=== PATIENT | female | born 1985 | race Caucasian/White ===

== ENCOUNTER → 2019-07-23 | Outpatient (CLI) | payer OTHER ==
[~2019-07-23] MED LIST: AMPI250 PO; IBUP800 PO; Norco 10-325 T1 EACH PO; Norco 5-325 Ta1 EACH PO; OXYACE5T PO; TAMS.4ER PO; Verotin-Gr Cap1 EACH PO; Zofran Odt4 MG SL
== END | disposition home or self-care (01) ==
LOC: LAB SHORT 11:55 → LAB 11:55
PROVIDERS: Obstetrics & Gynecology
DX: Z34.80 Encounter for supervision of other normal pregnancy, unspecified trimester (principal)
CPT/HCPCS: 88142

== ENCOUNTER → 2020-01-19 | Outpatient (CLI) | payer OTHER | END | disposition home or self-care (01) | LOC: LAB 18:52 → LAB SHORT 18:52 | DX: Z34.83 Encounter for supervision of other normal pregnancy, third trimester (principal) | CPT/HCPCS: 87070; 87081; 87653 ==

== ENCOUNTER 2020-02-08 05:18 | Inpatient (IN) | payer OTHER ==
[~2020-02-08] VITALS: Ht 165.1 cm; Wt 75.0 kg
[2020-02-08] MEDS ORDERED: FAMO20 PO (05:52)
[2020-02-08 06:47] LABS: BASOPHILS ABSOLUTE AUTO 0.07 K/mm3 (0.00-0.23); BASOPHILS PERCENT AUTO 0 % (0-2); EOSINOPHILS ABSOLUTE AUTO 0.16 K/mm3 (0.00-0.68); EOSINOPHILS PERCENT AUTO 1 % (0-6); Hematocrit 38.9 % (33.0-51.0); Hemoglobin 13.1 g/dL (11.5-16.0); IMMATURE GRAN ABSOLUTE AUTO 0.19 K/mm3 (0.00-0.10); IMMATURE GRAN PERCENT AUTO 1 % (0-1); LYMPHOCYTES ABSOLUTE AUTO 3.26 K/mm3 (0.84-5.20); LYMPHOCYTES PERCENT AUTO 21 % (21-46); MONOCYTES ABSOLUTE AUTO 0.94 K/mm3 (0.16-1.47); MONOCYTES PERCENT AUTO 6 % (4-13); Mean Corpuscular HGB 30.3 pg (26.0-34.0); Mean Corpuscular HGB Conc 33.7 g/dL (31.5-36.5); Mean Corpuscular Volume 90 fL (80-100); Mean Platelet Volume 10.9 fL (9.1-12.4); NEUTROPHILS ABSOLUTE AUTO 11.19 K/mm3 (1.96-9.15); NEUTROPHILS PERCENT AUTO 71 % (41-73); Platelet Count 143 K/mm3 (150-400); RDW Coefficient Variation 14.5 % (11.7-14.2); RDW Standard Deviation 47.8 fL (35.1-46.3); Red Blood Cell Count 4.32 M/mm3 (3.80-5.20); White Blood Cell Count 15.81 K/mm3 (4.00-11.30)
--- NOTE | 2020-02-08 07:13 | NUR ---
PT SITTING UP IN BED. C/O SOB AND GENERALIZED CHEST PAIN SINCE START OF PITOCIN. COLOR IS GOOD, NO LABORED BREATHING NOTED. LUNGS CLEAR T/O. BIOX WNL. PT REPORTS SHE MAY BE FEELING ANXIOUS. WILL CONTINUE TO MONITOR SATS AND NOTIFY DR OF ANY CHANGES
--- NOTE | 2020-02-08 15:12 | NUR ---
RN ROUNDED TO HELP W/ . INSTRUCT/DEMO WIDENING LATCH, CORRECT POSITIONING, AND NIPPLE SHAPE AFTER FEEDS. INSTRUCT/REVIEWED BOOKLET AND BROCHURE ON AND WHAT TO EXPECT DURING THE FIRST WEEK W/ AND CHANGES IN NB. PT AND SO VERBALIZED UNDERSTANDING AND DENY ANY FURTHER QUESTIONS OR CONCERNS.
--- NOTE | 2020-02-08 17:00 | NUR ---
1600: LEFT LABIA NOTED TO BE MORE SWOLLEN AND FIRM TO TOUCH. NO FIRMNESS NOTED ANYWHERE ELSE. NEW ICE PACK APPLIED AFTER SHOWER. 1700: NO INCREASE IN SWELLING OR FIRMNESS NOTED ON LEFT LABIA. PT STILL REPORTS DISCOMFORT. TYLENOL GIVEN FOR PAIN
--- NOTE | 2020-02-08 18:16 | NUR ---
1800 UP TO BRP. SALTY WELL. ABLE TO WALK A LITTLE BETTER. INCREASED SWELLING NOTED. PT STATES IT DOESN'T FEEL ANY WORSE THAN EARLIER. ABLE TO VOID WITHOUT DIFFICULTY. BRENNAN CARE DONE. NO ICE AT THIS TIME. WILL RESUME ICE IN AN HOUR OR TWO. PT RATES PAIN STILL 5/10. UNSURE IF SHE WILL NEED SOMETHING MORE FOR PAIN AT THIS TIME. PT OPTED TO STAND AT SIDE OF BED FOR A LITTLE WHILE. RN OUT OF ROOM. AT BEDSIDE WITH PT.
--- NOTE | 2020-02-08 19:22 | NUR ---
UPDATE TO DR. MELO, ORDER RECEIVED FOR PAIN MEDICATION.
--- NOTE | 2020-02-08 23:32 | NUR ---
NO CHANGE IN SWELLING FROM EARLIER DEMARCATION. PT REPORTS PAIN OKAY. 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 WILL CONTINUE TO MONITOR.
[2020-02-09 05:45] LABS: Hematocrit 30.7 % (33.0-51.0); Hemoglobin 10.2 g/dL (11.5-16.0); Mean Corpuscular HGB 30.5 pg (26.0-34.0); Mean Corpuscular HGB Conc 33.2 g/dL (31.5-36.5); Mean Corpuscular Volume 92 fL (80-100); Mean Platelet Volume 11.1 fL (9.1-12.4); Platelet Count 125 K/mm3 (150-400); RDW Coefficient Variation 14.3 % (11.7-14.2); Red Blood Cell Count 3.34 M/mm3 (3.80-5.20); White Blood Cell Count 17.45 K/mm3 (4.00-11.30)
[2020-02-09] MEDS ORDERED: IBUP800 PO (09:15)
--- NOTE | 2020-02-09 16:49 | NUR ---
DISCHARGE INSTRUCTIONS GIVEN AND REVIEWED. WRITTEN PRESCRIPTIONS GIVEN TO PATIENT.PATIENT DENIES ANY FURTHER QUESTIONS OR CONCERNS AT THIS TIME.
--- NOTE | 2020-02-09 17:10 | NUR ---
RN ROUNDED TO HELP W/ . PT REPORTS WENT WELL THROUGH THE NIGHT. DENIES ANY FURTHER QUESTIONS OR CONCERNS.
== END 2020-02-09 18:04 | disposition home or self-care (01) | DRG 807 ==
LOC: OBS 05:18 → BC 05:25
PROVIDERS: ADMIT Obstetrics & Gynecology
PROC: 10E0XZZ Delivery of Products of Conception, External Approach (ICD-10-PCS; principal; 2020-02-08)
PROC: 0KQM0ZZ Repair Perineum Muscle, Open Approach (ICD-10-PCS; 2020-02-08)
PROC: 3E0R3BZ Introduction of Anesthetic Agent into Spinal Canal, Percutaneous Approach (ICD-10-PCS; 2020-02-08)
PROC: 3E033VJ Introduction of Other Hormone into Peripheral Vein, Percutaneous Approach (ICD-10-PCS; 2020-02-08)
PROC: 10907ZC Drainage of Amniotic Fluid, Therapeutic from Products of Conception, Via Natural or Artificial Opening (ICD-10-PCS; 2020-02-08)
PROC: 0UQG7ZZ Repair Vagina, Via Natural or Artificial Opening (ICD-10-PCS; 2020-02-08)
PROC: 0UC97ZZ Extirpation of Matter from Uterus, Via Natural or Artificial Opening (ICD-10-PCS; 2020-02-08)
PROC: 00HU33Z Insertion of Infusion Device into Spinal Canal, Percutaneous Approach (ICD-10-PCS; 2020-02-08)
DX: O36.63X0 Maternal care for excessive fetal growth, third trimester, not applicable or unspecified (principal); Z37.0 Single live birth; O69.81X0 Labor and delivery complicated by cord around neck, without compression, not applicable or unspecified; O70.1 Second degree perineal laceration during delivery; Z3A.39 39 weeks gestation of pregnancy; O90.89 Other complications of the puerperium, not elsewhere classified; O71.82 Other specified trauma to perineum and vulva
CPT/HCPCS: 36415; 51702; 85025; 85027; 85460; 86850; 86870; 86900; 86901; 96372; A9270; J1885; J2001; J2210; J2590; J2791; J3010; J7120

== ENCOUNTER 2020-09-03 01:43 | Emergency (ER) | payer OTHER ==
[~2020-09-03] VITALS: Ht 165.1 cm; Wt 63.5 kg
[~2020-09-03 01:43] MED LIST changes: +FAMO20 PO
[2020-09-03 02:12] LABS: BASOPHILS ABSOLUTE AUTO 0.07 K/mm3 (0.00-0.23); BASOPHILS PERCENT AUTO 1 % (0-2); EOSINOPHILS ABSOLUTE AUTO 0.34 K/mm3 (0.00-0.68); EOSINOPHILS PERCENT AUTO 3 % (0-6); Hematocrit 44.8 % (33.0-51.0); Hemoglobin 14.5 g/dL (11.5-16.0); IMMATURE GRAN ABSOLUTE AUTO 0.03 K/mm3 (0.00-0.10); IMMATURE GRAN PERCENT AUTO 0 % (0-1); LYMPHOCYTES ABSOLUTE AUTO 4.11 K/mm3 (0.84-5.20); LYMPHOCYTES PERCENT AUTO 37 % (21-46); MONOCYTES ABSOLUTE AUTO 0.74 K/mm3 (0.16-1.47); MONOCYTES PERCENT AUTO 7 % (4-13); Mean Corpuscular HGB 28.4 pg (26.0-34.0); Mean Corpuscular HGB Conc 32.4 g/dL (31.5-36.5); Mean Corpuscular Volume 88 fL (80-100); Mean Platelet Volume 10.3 fL (9.1-12.4); NEUTROPHILS ABSOLUTE AUTO 5.76 K/mm3 (1.96-9.15); NEUTROPHILS PERCENT AUTO 52 % (41-73); Platelet Count 228 K/mm3 (150-400); RDW Coefficient Variation 12.8 % (11.7-14.2); RDW Standard Deviation 41.4 fL (35.1-46.3); White Blood Cell Count 11.05 K/mm3 (4.00-11.30)
[2020-09-03 02:30] LABS: Alanine Aminotransfer (ALT/SGP 24 U/L (12-78); Albumin, Blood 4.1 g/dL (3.4-5.0); Albumin/Globulin Ratio 1.2 (0.8-1.8); Alk Phos 118 U/L (50-136); Anion Gap 7 mmol/L (6-16); Aspartate Aminotrans (AST/SGOT 12 U/L (12-37); Bilirubin, Total 0.4 mg/dL (0.1-1.0); Blood Urea Nitrogen 27 mg/dL (8-24); Bun/Creatinine Ratio 30.3 (12.0-20.0); CO2, Blood 24 mmol/L (21-32); Calcium, Blood 8.9 mg/dL (8.5-10.1); Chloride, Blood 112 mmol/L (98-108); Creatinine, Blood 0.89 mg/dL (0.40-1.00); Globulin, Blood 3.3 g/dL (2.2-4.0); Glomerular Filtration Rate >60 (60-); Glucose, Blood 99 mg/dL (70-99); Potassium, Blood 3.7 mmol/L (3.5-5.5); Sodium, Blood 143 mmol/L (136-145); Total Protein, Blood 7.4 g/dL (6.4-8.2)
[2020-09-03 03:56] LABS: Source, Urine Clean Catch
[2020-09-03 03:57] LABS: Bilirubin, Urine Neg (Neg); Blood, Urine 5+ (Neg); Glucose Qualitative, Urine Neg (Neg); Ketones, Urine 1+ (Neg); Leukocyte Esterase, Urine 1+ (Neg); Nitrite, Urine Neg (Neg); Protein, Urine 2+ (Neg); Urobilinogen, Urine NORM (Normal)
[2020-09-03 04:03] LABS: Appearance, Urine Hazy (Clear); Color, Urine Yellow (P-Yellow)
[2020-09-03 04:04] LABS: Bacteria Few /hpf; Mucus Light (0-Heavy); Red Blood Cells, Urine TNTC /hpf (0-2); Squamous Epithelial Cells Few /hpf (Few)
[2020-09-03] MEDS ORDERED: HYDR1TAB94 PO (04:32)
[2020-09-03] MEDS ORDERED: ONDA4ODT MM (04:32)
== END 2020-09-03 04:37 | disposition home or self-care (01) ==
LOC: ER 01:43
PROVIDERS: Emergency Medicine
DX: N13.2 Hydronephrosis with renal and ureteral calculous obstruction (principal); F41.9 Anxiety disorder, unspecified
CPT/HCPCS: 36415; 74176; 80053; 81001; 84703; 85025; 87086; 96374; 96375; 99284-25; J1885; J2405; J3010; J7030

== ENCOUNTER 2020-09-08 07:06 | Emergency (ER) | payer OTHER ==
[~2020-09-08] VITALS: Ht 165.1 cm; Wt 63.5 kg
[~2020-09-08 07:06] MED LIST changes: +HYDR1TAB94 PO; +ONDA4ODT MM
[2020-09-08] MEDS ORDERED: Vitamin B-121000 MCG PO (07:54)
[2020-09-08] MEDS ORDERED: ACET500 PO (07:54)
[2020-09-08 08:32] LABS: BASOPHILS ABSOLUTE AUTO 0.03 K/mm3 (0.00-0.23); BASOPHILS PERCENT AUTO 0 % (0-2); EOSINOPHILS ABSOLUTE AUTO 0.12 K/mm3 (0.00-0.68); EOSINOPHILS PERCENT AUTO 1 % (0-6); Hematocrit 39.6 % (33.0-51.0); IMMATURE GRAN ABSOLUTE AUTO 0.02 K/mm3 (0.00-0.10); IMMATURE GRAN PERCENT AUTO 0 % (0-1); LYMPHOCYTES ABSOLUTE AUTO 1.75 K/mm3 (0.84-5.20); LYMPHOCYTES PERCENT AUTO 17 % (21-46); MONOCYTES ABSOLUTE AUTO 0.59 K/mm3 (0.16-1.47); MONOCYTES PERCENT AUTO 6 % (4-13); Mean Corpuscular HGB 29.5 pg (26.0-34.0); Mean Corpuscular HGB Conc 32.8 g/dL (31.5-36.5); Mean Corpuscular Volume 90 fL (80-100); Mean Platelet Volume 10.4 fL (9.1-12.4); NEUTROPHILS ABSOLUTE AUTO 7.54 K/mm3 (1.96-9.15); NEUTROPHILS PERCENT AUTO 75 % (41-73); Platelet Count 188 K/mm3 (150-400); RDW Coefficient Variation 12.8 % (11.7-14.2); RDW Standard Deviation 42.3 fL (35.1-46.3); Red Blood Cell Count 4.41 M/mm3 (3.80-5.20); White Blood Cell Count 10.05 K/mm3 (4.00-11.30)
[2020-09-08 08:46] LABS: Alanine Aminotransfer (ALT/SGP 16 U/L (12-78); Albumin, Blood 3.6 g/dL (3.4-5.0); Albumin/Globulin Ratio 1.2 (0.8-1.8); Alk Phos 81 U/L (50-136); Anion Gap 4 mmol/L (6-16); Aspartate Aminotrans (AST/SGOT 12 U/L (12-37); Bilirubin, Total 0.7 mg/dL (0.1-1.0); Blood Urea Nitrogen 20 mg/dL (8-24); Bun/Creatinine Ratio 23.8 (12.0-20.0); CO2, Blood 25 mmol/L (21-32); Calcium, Blood 8.1 mg/dL (8.5-10.1); Chloride, Blood 116 mmol/L (98-108); Creatinine, Blood 0.84 mg/dL (0.40-1.00); Globulin, Blood 3.1 g/dL (2.2-4.0); Glomerular Filtration Rate >60 (60-); Glucose, Blood 87 mg/dL (70-99); Potassium, Blood 3.9 mmol/L (3.5-5.5); Sodium, Blood 145 mmol/L (136-145); Total Protein, Blood 6.7 g/dL (6.4-8.2)
[2020-09-08 09:26] LABS: Source, Urine Clean Catch
[2020-09-08 09:31] LABS: Appearance, Urine Clear (Clear); Bilirubin, Urine Neg (Neg); Blood, Urine 2+ (Neg); Color, Urine Yellow (P-Yellow); Glucose Qualitative, Urine Neg (Neg); Ketones, Urine 2+ (Neg); Leukocyte Esterase, Urine 1+ (Neg); Nitrite, Urine Neg (Neg); Protein, Urine 1+ (Neg); Urobilinogen, Urine NORM (Normal)
[2020-09-08 09:47] LABS: Bacteria Rare /hpf; Squamous Epithelial Cells Few /hpf (Few)
[2020-09-08 12:36] LABS: Influenza A, PCR Negative (NEGATIVE); Influenza B, PCR Negative (NEGATIVE); Resp Syncytial Virus, PCR Negative (NEGATIVE); SARS-Cov-2 (COVID-19) PCR, MMC Negative (NEGATIVE)
== END 2020-09-08 12:34 | disposition home or self-care (01) ==
LOC: ER 07:06
PROVIDERS: Emergency Medicine
DX: N20.1 Calculus of ureter (principal); Z79.899 Other long term (current) drug therapy
CPT/HCPCS: 0241U; 80053; 81001; 85025; 87086; 96361; 96365; 96375; 99284-25; J0696; J1885; J2405; J7030

== ENCOUNTER 2021-01-27 17:32 | Observation (INO) | payer OTHER ==
[~2021-01-27] VITALS: Ht 165.1 cm; Wt 67.9 kg
[~2021-01-27 17:32] MED LIST changes: +ACET500 PO; +Vitamin B-121000 MCG PO
[2021-01-27] MEDS ORDERED: VITAMIN D32000 UNI1 PO (19:39)
[2021-01-27 23:40] LABS: Calcium, Ionized (POC) 1.13 mmol/L (1.10-1.46); Chloride (POC) 106 mmol/L (98-108); Creatinine (POC) 0.7 mg/dL (0.6-1.0); Glucose (ISTAT POC) 115 mg/dL (70-99); Hemoglobin (POC) 13.3 g/dL (12.0-16.0); Potassium (POC) 4.2 mmol/L (3.5-5.5); Sodium (POC) 141 mmol/L (135-148); Total CO2 (POC) 25 mmol/L (21-32)
--- NOTE | 2021-01-28 02:36 | NUR ---
PT ARRIVED TO ROOM FROM ER, ACCOMPANIED BY . VSS, PT A/O, DENIES DIZZINESS, PUPILS EQUAL/REACTIVE. PT WEAK AND PAINFUL W/MVMT. PT HAS LARGE HEMATOMA TO LOWER BACK, APPX 20 X 10 CM. AREA OUTLINED, ICE PACK PLACED. PT DENIES N/T TO EXT. PT HAS LARGE LACERATION TO RFA W/SUTURES INTACT, ALSO LAC TO R WRIST W/SUTURES. SITES CLEANSED, NON ADHEARRANT DRESSING PLACED AND WRAPPED LOOSELY W/KERLEX. PT ALSO HAS LAC ON RIGHT TOP OF HEAD W/SUTURE. PT HAS SCATTERED ABRASIONS AND BRUISING ON ARMS AND LEGS.PT WEAK AND PAINFUL W/MVMT, IS UNABLE TO BEND BACK R/T PAIN. PT ORIENTED TO ROOM/CALL LIGHT. WILL CLOSELY MONITOR AND NOTIFY MD FOR CHANGES/CONCERNS.
--- NOTE | 2021-01-28 07:49 | NUR ---
PT NEW ADMIT THIS SHIFT FOR TRAUMA W/LUMBAR HEMATOMA. PT HAD NO CHANGES SINCE ARRIVING TO FLOOR; VSS. PT DENIED DIZZINESS/BENAVIDEZ, DENIED N/T TO EXT. NO CHANGES NOTED TO HEMATOMA ON LOWER BACK, BRUISING REMAINS WITHIN OUTLINE, NO SIG CHANGES NOTED IN SWELLING. ICE PACK PLACED. PAIN MGD W/0.5 MG DILAUDID W/REP RELIEF. PT EMOTIONAL THIS AM, SUPPORT PROVIDED. BEDSIDE REPORT GIVEN TO SHAHID Felder RN.
[2021-01-28] MEDS ORDERED: ONDA4ODT MM (16:58)
[2021-01-28] MEDS ORDERED: LORCET 5-325 M1 EAC3 PO (16:58)
--- NOTE | 2021-01-28 18:35 | NUR ---
DISCHARGE: PACKET PRINTED AND PT EDUCATED. PT EDUCATED ON INCISION CARE AND DRESSING CHANGES, GIVEN SUPPLIES. IV DC'D WNL. GIVEN SCRIPTS. PT LEFT UNIT VIA WHEELCHAIR WITH AND LISANDRA FOX.
== END 2021-01-28 18:13 | disposition home or self-care (01) ==
LOC: ER 17:32 → SURS 17:33
PROVIDERS: Emergency Medicine; ADMIT Surgery
DX: S30.0XXA Contusion of lower back and pelvis, initial encounter (principal); S41.111A Laceration without foreign body of right upper arm, initial encounter; S01.01XA Laceration without foreign body of scalp, initial encounter; N83.201 Unspecified ovarian cyst, right side; V86.09XA Driver of other special all-terrain or other off-road motor vehicle injured in traffic accident, initial encounter
CPT/HCPCS: 70450; 71260; 72100; 72128; 72131; 73090; 74177; 80047; 85014; A9270-GY; J0690; J1170; J2270; J2405; J7030; Q9967

== ENCOUNTER → 2022-05-07 | Outpatient (CLI) | payer OTHER ==
[~2022-05-07] MED LIST changes: +LORCET 5-325 M1 EAC3 PO; +VITAMIN D32000 UNI1 PO
[2022-05-08 15:10] LABS: HPV 16 Negative (Negative); HPV 18 Negative (Negative); HPV OTHER HR TYPES Negative (Negative)
== END | disposition home or self-care (01) ==
LOC: LAB SHORT 16:02 → LAB 16:02
PROVIDERS: Obstetrics & Gynecology
DX: Z01.419 Encounter for gynecological examination (general) (routine) without abnormal findings (principal)
CPT/HCPCS: 87624; G0123

== ENCOUNTER → 2022-05-07 | Outpatient (CLI) | payer OTHER | END | disposition home or self-care (01) | LOC: PLD 07:24 → LAB SHORT 07:24 | DX: N84.1 Polyp of cervix uteri (principal) | CPT/HCPCS: 88305 ==

== ENCOUNTER → 2022-11-06 | Outpatient (CLI) | payer OTHER ==
[2022-11-09 05:09] LABS: CHLAMYDIA TRACHOMATIS, NAA Negative (Negative)
== END | disposition home or self-care (01) ==
LOC: LAB SHORT 17:07 → LAB 17:07
PROVIDERS: Advanced Practice Midwife
DX: Z11.3 Encounter for screening for infections with a predominantly sexual mode of transmission (principal)
CPT/HCPCS: 87491; 87591